=== PATIENT | male | born 1980 | race Caucasian/White ===

== ENCOUNTER 2020-11-30 17:01 | Emergency (ER) | payer OTHER ==
[~2020-11-30] VITALS: Ht 172.7 cm; Wt 83.9 kg
[2020-11-30] MEDS ORDERED: NORCO5 PO ×2 (17:57→18:19)
[2020-11-30] MEDS ORDERED: CIPROFLOXIN HC2.5 M1 OPHTHALMIC ×2 (17:57→18:19)
[2020-11-30 18:37] VITALS: BP 137/95
== END 2020-11-30 18:41 | disposition home or self-care (01) ==
LOC: M.ERS 17:01
DX: S05.02XA Injury of conjunctiva and corneal abrasion without foreign body, left eye, initial encounter (principal); X58.XXXA Exposure to other specified factors, initial encounter; Y93.89 Activity, other specified; Y92.89 Other specified places as the place of occurrence of the external cause; Y99.8 Other external cause status